=== PATIENT | female | born 1980 | race American Indian/Alaskan Native ===

== ENCOUNTER 2016-07-11 19:59 | Emergency (ER) | payer SELFPAY ==
--- NOTE | 2016-07-11 22:40 | Emergency Department Report ---
HPI - General Chief Complaint: Sore Throat Time Seen by Provider: 07/11/16 22:21 - HPI HPI: 36-year-old female presents today with right-sided neck and shoulder pain 1 week. Denies injury or trauma. Patient states that she did start working out which may be associated. Patient states that this morning the pain started radiating to her throat. Patient complaining of painful swallowing. Positive for history of similar symptoms and was diagnosed with something thyroid related. Patient did not follow up with specialist. Positive for subjective fever. Denies nausea, vomiting, chest pain, shortness of breath, abdominal pain. Tried ibuprofen without relief. Describes her pain as 8 out of 10 constant pain. ED Past Medical Hx - Past Medical History Previous Medical History?: Yes Hx CVA: Yes Hx Heart Attack/AMI: Yes Hx Seizures: Yes (epilepsy) Additional medical history: VSD - Surgical History Past Surgical History?: Yes Additional Surgical History: open heart surgery - Social History Smoking Status: Current Every Day Smoker Substance Use Type: None - Medications Home Medications: Home Medications Medication Instructions Recorded Confirmed Last Taken Type HYDROcodone/APAP 7.5-325 [[place] 1 each PO Q8HR PRN #10 tablet 01/14/16 Unknown Rx 7.5-325 mg TAB] Cyclobenzaprine [Flexeril] 10 mg PO TID PRN #14 tablet 07/11/16 Unknown Rx Naproxen [Naprosyn] 500 mg PO BID #20 tablet 07/11/16 Unknown Rx ED Review of Systems ROS: Stated complaint: TONSIL PAIN Other details as noted in HPI Constitutional: fever. denies: chills, malaise Eyes: denies: eye pain ENT: throat pain. denies: ear pain, congestion Respiratory: denies: cough, shortness of breath, wheezing Cardiovascular: denies: chest pain, palpitations Endocrine: no symptoms reported Gastrointestinal: denies: abdominal pain, nausea, vomiting Neurological: denies: headache, weakness Physical Exam - Physical Exam Vital Signs: Vital Signs 07/11/16 20:07 Temperature 98.9 F Pulse Rate 80 Respiratory 18 Rate Blood Pressure 144/94 [Right] O2 Sat by Pulse 100 Oximetry Physical Exam: GENERAL: The patient is well-developed and well-nourished. Patient is in NAD. HEAD: Normocephalic. Atraumatic. EYES: PERRL. EARS: External auditory canals and tympanic membranes clear; hearing grossly intact. NOSE: Normal nasal mucosa with no nasal discharge. THROAT: No erythema, swelling or exudates. NECK: Positive for tenderness to palpation over the thyroid gland. No lymphadenopathy noted. No meningitic signs are noted. Full range of motion, but painful. No midline tenderness. Positive for right-sided paraspinal tenderness to palpation. CHEST/LUNGS: Clear to auscultation throughout. HEART/CARDIOVASCULAR: Regular rate and rhythm. ABDOMEN: Abdomen is soft, nontender. No guarding or rebound tenderness. RIGHT SHOULDER: Full range of motion. No tenderness to palpation of shoulder joint. Normal sensation. 2 point discrimination intact. Peripheral pulses intact. Capillary refill less than 2 seconds. NEURO: Alert and oriented x 3. Normal gait. ED Course Vital Signs 07/11/16 20:07 Temperature 98.9 F Pulse Rate 80 Respiratory 18 Rate Blood Pressure 144/94 [Right] O2 Sat by Pulse 100 Oximetry ED Medical Decision Making - Lab Data Vital Signs 07/11/16 20:07 Temperature 98.9 F Pulse Rate 80 Respiratory 18 Rate Blood Pressure 144/94 [Right] O2 Sat by Pulse 100 Oximetry - Medical Decision Making 36-year-old female presents today with cervical strain and tenderness over the thyroid region. Explained to patient that she needs to follow up with primary care provider or an feed preparation operator f for her underlying thyroid condition. Patient expressed understanding. Patient is in no acute distress at this time. She will be discharged home and is encouraged to follow up with a primary care provider. She will be sent home on Flexeril and naproxen and is encouraged to return to the emergency room for any worsening symptoms. Critical care attestation.: If time is entered above; I have spent that time in minutes in the direct care of this critically ill patient, excluding procedure time. ED Disposition Clinical Impression: Cervical strain Qualifiers: Encounter type: initial encounter Qualified Code(s): S16.1XXA - Strain of muscle, fascia and tendon at neck level, initial encounter Disposition: DISCHARGED TO HOME OR SELFCARE Is pt being admited?: No Does the pt Need Aspirin: No Condition: Stable Instructions: Muscle Strain (ED) Additional Instructions: Follow with primary care provider. Return to the emergency department if symptoms worsen. Prescriptions: Cyclobenzaprine [Flexeril] 10 mg PO TID PRN #14 tablet PRN Reason: Muscle Spasm Naproxen [Naprosyn] 500 mg PO BID #20 tablet Referrals: PRIMARY CARE, [Primary Care Provider] - 3-5 Days [facility] [Outside] - 3-5 Days Forms: Work/School Release Form(ED) Time of Disposition: 22:45
[2016-07-11 23:06] VITALS: BP 134/88
== END 2016-07-11 23:09 | disposition home or self-care (01) ==
LOC: ED 19:59
DX: S16.1XXA Strain of muscle, fascia and tendon at neck level, initial encounter (principal); I25.2 Old myocardial infarction; G40.909 Epilepsy, unspecified, not intractable, without status epilepticus; I63.9 Cerebral infarction, unspecified; F17.200 Nicotine dependence, unspecified, uncomplicated; X58.XXXA Exposure to other specified factors, initial encounter; Y93.9 Activity, unspecified; Y99.9 Unspecified external cause status; Y92.9 Unspecified place or not applicable
CPT/HCPCS: 99282

== ENCOUNTER 2020-10-29 10:24 | Emergency (ER) | payer SELFPAY ==
[2020-10-29 11:12] VITALS: BP 133/85
--- NOTE | 2020-10-29 11:36 | Emergency Department Report ---
- General Chief complaint: Animal Bite Stated complaint: INSECT BITE Time Seen by Provider: 10/29/20 11:32 Source: patient Mode of arrival: Ambulatory Limitations: No Limitations - History of Present Illness Initial comments: Patient is a 40-year-old female presents emergency room with complaints of insect bites to the left leg that occurred around 9:30 AM. She did not see anything that bit her but states that she felt a itching and burning sensation. She denies breaking out in a rash afterwards. She denies any facial swelling, difficulty swallowing sensation of throat closing, drainage, fever, vomiting. She reports that she has a history of CO, CVA, seizures. No allergies to medications. Last menstrual cycle 10/11/2020. - Related Data Previous Rx's Medication Instructions Recorded Last Taken Type HYDROcodone/APAP 7.5-325 [[place] 1 each PO Q8HR PRN #10 tablet 01/14/16 Unknown Rx 7.5-325 mg TAB] Cyclobenzaprine [Flexeril] 10 mg PO TID PRN #14 tablet 07/11/16 Unknown Rx Naproxen [Naprosyn] 500 mg PO BID #20 tablet 07/11/16 Unknown Rx Allergies Allergy/AdvReac Type Severity Reaction Status Date / Time shellfish derived Allergy Swelling Verified 10/29/20 11:07 Abscess Boil HPI - HPI Chief Complaint: Animal Bite Stated Complaint: INSECT BITE Time Seen by Provider: 10/29/20 11:32 Home Medications: Previous Rx's Medication Instructions Recorded Last Taken Type HYDROcodone/APAP 7.5-325 [[place] 1 each PO Q8HR PRN #10 tablet 01/14/16 Unknown Rx 7.5-325 mg TAB] Cyclobenzaprine [Flexeril] 10 mg PO TID PRN #14 tablet 07/11/16 Unknown Rx Naproxen [Naprosyn] 500 mg PO BID #20 tablet 07/11/16 Unknown Rx Allergies/Adverse Reactions: Allergies Allergy/AdvReac Type Severity Reaction Status Date / Time shellfish derived Allergy Swelling Verified 10/29/20 11:07 ED Review of Systems ROS: Stated complaint: INSECT BITE Other details as noted in HPI Comment: All other systems reviewed and negative ED Past Medical Hx - Past Medical History Hx CVA: Yes Hx Heart Attack/AMI: Yes Hx Seizures: Yes (epilepsy) Additional medical history: VSD - Surgical History Additional Surgical History: open heart surgery - Social History Smoking Status: Current Every Day Smoker Substance Use Type: None - Medications Home Medications: Home Medications Medication Instructions Recorded Confirmed Last Taken Type HYDROcodone/APAP 7.5-325 [[place] 1 each PO Q8HR PRN #10 tablet 01/14/16 Unknown Rx 7.5-325 mg TAB] Cyclobenzaprine [Flexeril] 10 mg PO TID PRN #14 tablet 07/11/16 Unknown Rx Naproxen [Naprosyn] 500 mg PO BID #20 tablet 07/11/16 Unknown Rx ED Physical Exam - General Limitations: No Limitations General appearance: alert, in no apparent distress - Head Head exam: Present: atraumatic, normocephalic - Eye Eye exam: Present: normal appearance - ENT ENT exam: Present: mucous membranes moist - Respiratory Respiratory exam: Absent: respiratory distress, accessory muscle use - Neurological Exam Neurological exam: Present: alert, oriented X3 - Psychiatric Psychiatric exam: Present: normal affect, normal mood - Skin Skin exam: Present: warm, dry, other (there is a 2 mm erythematous papule to the right anterior thigh, no surrounding erythema, no drainage, no pusule, no necrosis, no skin denuding, no blistering, no urticaria) ED Course Vital Signs 10/29/20 11:11 Temperature 98.0 F Pulse Rate 66 Respiratory 20 Rate Blood Pressure 133/85 O2 Sat by Pulse 98 Oximetry ED Medical Decision Making - Medical Decision Making Patient is a 40-year-old female presents emergency room with complaints of insect bites to the left leg that occurred around 9:30 AM. She did not see anything that bit her but states that she felt a itching and burning sensation. She denies breaking out in a rash afterwards. She denies any facial swelling, difficulty swallowing sensation of throat closing, drainage, fever, vomiting. She reports that she has a history of CO, CVA, seizures. No allergies to medications. Last menstrual cycle 10/11/2020. Vitals are stable. On exam:there is a 2 mm erythematous papule to the right anterior thigh, no surrounding erythema, no drainage, no pusule, no necrosis, no skin denuding, no blistering, no urticaria. Examination appears consistent with 1 very small insect bite. This is very minor. There is no signs of allergic reaction, infection, cellulitis. Advised patient May use triple antibiotic or Neosporin ointment [id number]. May use cortisone ointment to help with itching. Follow-up with a primary care doctor. Return to emergency room for new or worsening symptoms. Critical care attestation.: If time is entered above; I have spent that time in minutes in the direct care of this critically ill patient, excluding procedure time. ED Disposition Clinical Impression: Insect bite Qualifiers: Encounter type: initial encounter Site of insect bite: lower leg Laterality: left Qualified Code(s): S80.862A - Insect bite (nonvenomous), left lower leg, initial encounter Disposition: TO HOME OR SELFCARE Is pt being admited?: No Does the pt Need Aspirin: No Condition: Stable Instructions: Insect Bite, Adult Additional Instructions: May use triple antibiotic or Neosporin ointment [id number]. May use cortisone ointment to help with itching. Follow-up with a primary care doctor. Return to emergency room for new or worsening symptoms. Referrals: [facility] [Provider Group] - 2-3 Days GALO BURNETT MD [Staff Physician] - 2-3 Days Forms: Work/School Release Form(ED) Time of Disposition: 11:35 Print Language: CHADIAN
== END 2020-10-29 12:00 | disposition home or self-care (01) ==
LOC: ED 10:24
DX: S80.862A Insect bite (nonvenomous), left lower leg, initial encounter (principal); F17.200 Nicotine dependence, unspecified, uncomplicated; G40.909 Epilepsy, unspecified, not intractable, without status epilepticus; Z98.890 Other specified postprocedural states; Z91.013 Allergy to seafood; Z79.899 Other long term (current) drug therapy; W57.XXXA Bitten or stung by nonvenomous insect and other nonvenomous arthropods, initial encounter; Y93.89 Activity, other specified; Y92.89 Other specified places as the place of occurrence of the external cause; Y99.8 Other external cause status
CPT/HCPCS: 99282